=== PATIENT | female | born 2005 | race Caucasian/White ===

== ENCOUNTER 2024-12-22 07:34 | Emergency (ER) | payer OTHER, SELFPAY ==
[2024-12-22 07:38] VITALS: BP 113/64; PULSE 94; RESP 16; TEMP 36.3; O2SAT 98; BMI 26.6
--- NOTE | 2024-12-22 08:21 | ED.LOWEXIN ---
HPI - Extremity Injury (Lower) General Date Seen: 12/22/24 Chief Complaint: Extremity Pain/Injury, Lower Stated Complaint: twisted L ankle Time Seen by Provider: 12/22/24 08:15 Source: patient Mode of arrival: ambulatory Limitations: no limitations History of Present Illness HPI Narrative: Patient is a very nice 19-year-old female from [place] was sliding on the heel yesterday, jammed her left ankle, which she was sliding she noted immediate swelling, did not hear crack, and to bear weight is somewhat painful. She notices the swelling is more the medial side of her ankle, it hurts a little bit to dorsiflex but she is able to come through full range of motion she denies any injury to her left knee, neck back shoulders there is no loss of conscious associated with that she has no pre-existing history of any ankle problems. Is on no chronic medications, she took some ibuprofen last night but none within the last 12 hours. She tells me there is no chance she is . Type of Injury: eversion and hyperflexion Place: school Severity: moderate Relieving factors: NSAID Exacerbating factors: weight bearing, movement and palpation Context: direct blow Associated symptoms: swelling, able to partially bear weight and ambulatory Other symptoms: none Treatments prior to arrival: NSAIDS Related Data Allergies Allergy/AdvReac Type Severity Reaction Status Date / Time No Known Drug Allergies Allergy Verified 12/22/24 07:45 Review of Systems Status of ROS: Reports: 10 or more systems reviewed and unremarkable except as noted in History and below Exam Narrative: Exam Narrative: On examination her left ankle shows some swelling some ecchymosis medially, she is somewhat sore also medially as a postal laterally, she is able to dorsiflex her foot through full range of motion and plantar flex a, anterior drawer test is negative, no tenderness over the midfoot region. DP and posterior tibial pulses are normal sensations normal she does have swelling that comes up her distal tib-fib, and compression test is positive. Const: Vital Signs, click to edit/add: Vital Signs - 24 hr 12/22/24 07:38 Temperature 97.4 F L Pulse Rate [Pulse Oximeter] 94 Respiratory Rate 16 Blood Pressure [Le ft Upper Arm] 113/64 Pulse Oximetry 98 Oxygen Delivery Me thod Room Air Documenting provider has reviewed patient's vital signs: yes Course Course ED Course: I reviewed the x-ray, she has a Brooks B lateral malleolar fracture, neurovascularly stable, she is put in a Bello Jacques, splint in her lower leg. Post splinting she had fantastic cap refill to her toes, movement was normal there is no pain. And normal DP and posterior tibial pulses sensation was also normal. Vital Signs Vital signs: Initial Vital Signs Temperature 97.4 F L 12/22/24 07:38 Temperature Source Temporal Artery Scan 12/22/24 07:38 Pulse Rate 94 12/22/24 07:38 Pulse Rhythm Regular 12/22/24 07:38 Respiratory Rate 16 12/22/24 07:38 Blood Pressure 113/64 12/22/24 07:38 Blood Pressure Mean 80 12/22/24 07:38 Pulse Oximetry 98 12/22/24 07:38 Oxygen Delivery Method Room Air 12/22/24 07:38 Vital Signs Temperature 97.4 F L 12/22/24 07:38 Pulse Rate 94 12/22/24 07:38 Respiratory Rate 16 12/22/24 07:38 Blood Pressure 113/64 12/22/24 07:38 Pulse Oximetry 98 12/22/24 07:38 Oxygen Delivery Method Room Air 12/22/24 07:38 Temperature 97.4 F L 12/22/24 07:38 Pulse Rate 94 12/22/24 07:38 Respiratory Rate 16 12/22/24 07:38 Blood Pressure 113/64 12/22/24 07:38 Pulse Oximetry 98 12/22/24 07:38 Oxygen Delivery Method Room Air 12/22/24 07:38 Medications Administered Medications: Discontinued Medications Generic Name Dose Route Start Last Admin Trade Name Freq PRN Reason Stop Dose Admin Ibuprofen 600 mg 12/22/24 08:18 12/22/24 08:27 Ibuprofen 200 Mg Tablet PO 12/22/24 08:19 600 mg ONCE ONE Administration MDM - Extremity Injury (Lower) MDM Narrative Medical decision making narrative: I discussed with her we will get an x-ray of her left ankle, given her pain with weight-bearing, I worry about a medial malleolar fracture here, or a possible high ankle strain, given her degree of swelling in her distal tib-fib, we will give her some ibuprofen and ice. Medical Records Attestation: I reviewed the patient's medical records. Imaging Data Ankle x-ray: Attestation: I have reviewed the pertinent imaging results. My impression: Ankle x-rays reviewed she has a nondisplaced lateral malleolar distal fibular fracture, there also appears to be widening of the ankle mortise, consistent with the ankle strain or deltoid ligament rupture. This would be graded as a Brooks B fracture of the ankle Radiologist's impression: Radiologist [address] [address] Diagnostic Imaging Report Patient: Zaira Borrero MR#: [id number] : 2005 Acct:[id number] Loc: ED Service Date: 12/22/[address]: Ordering Physician: Rashid Graves M.D. Date of Service: 12/22/24 Procedure(s): XR ankle LT min 3V Accession Number(s): [id number] cc: Provider,Not a Local; Rashid Graves M.D.~ For Patients: As a result of the Cures Act, medical imaging exams and procedure reports are released immediately into your electronic medical record. You may view this report before your referring provider. If you have questions, please contact your health care provider. Indication: Ankle injury Technique: Left ankle 3 views. Comparison: None. Findings: Bones: Nondisplaced oblique fracture of the lateral malleolus (Brooks B). Widening of the medial ankle gutter measuring 4 millimeters. Soft tissues: Significant soft tissue swelling surrounding the ankle. Impression: Nondisplaced oblique fracture of the lateral malleolus (Brooks B). Widening of the medial ankle gutter is consistent with ankle instability. Dictated by Marisol Turk MD @ 12/22/2024 8:41:39 AM (Electronically Signed) Discharge Plan Discharge Clinical Impression: Ankle fracture Patient Disposition: Home, Self-Care Condition: Stable Instructions: Ankle Fracture (ED), Ankle Fracture (DC), Crutch Instructions (ED), Closed Reduction Internal Fixation of Leg Fracture in Adults (DC) Additional Instructions: You will receive a call from the [facility] to schedule a follow up appointment. If you haven't received a call by the end of the day on 12/24, please call [phone]. No weight bearing on the splint. Please do the bag to shower, ibuprofen 600 mg po tid and elevations above the level of the heart. Very important to try to reduce swelling. Follow up with ORTHO mandatory. .. Activity Level: No Weight Bearing Follow Up/Referrals: Provider,Not a Local [Primary Care Provider] - Stand Alone Forms: [facility] Info Instructions
[2024-12-22] MEDS: IBUPROFEN 200 MG TABLET 600 MG PO (08:27)
== END 2024-12-22 09:23 | disposition home or self-care (01) ==
PROVIDERS: Emergency Provider Family Medicine
DX: S82.65XA Nondisplaced fracture of lateral malleolus of left fibula, initial encounter for closed fracture (principal); X50.1XXA Overexertion from prolonged static or awkward postures, initial encounter
CPT/HCPCS: 29515; 73610; 99283; 99284; A9270

== ENCOUNTER 2025-01-02 06:11 | Day surgery (SDC) | payer OTHER, SELFPAY ==
[2025-01-02] VITALS (16 sets, daily range): BP systolic 108–122; BP diastolic 58–85; PULSE 59–84; RESP 14–23; TEMP 36–36.8; O2SAT 95–100; BMI 25.3
--- OUTSIDE RECORDS SUMMARY | 2025-01-02 06:15 | XMS_ITS | Clinical Summary ---
Author Organization [facility] Address [address] [place] [id number] Care Team Providers Care Scale Model Maker Name Role Phone Pcp, No Primary Care Provider Unavailabl e Allergies No known active allergies Encounters Date Type Department Care Team Description 01/01/2025 1:35 PM CASUAL SHOE INSPECTOR Office Visit [facility] [address] [place] [address] Oriana Victoria PA Preoperative Exam (01/02/25, Left foot open reduction internal fixation.) 01/01/2025 Travel 12/29/2024 Travel from Last 3 Months Social History Tobacco Use Types Packs/Day Years Used Date Smoking Tobacco: Never Smokeless Tobacco: Never Tobacco Cessation:Counseling Given: Not Answered Social Connections Answer Date Recorded Do you often feel lonely or isolated from those around you? 0 12/29/2024 Financial Resource Strain Answer Date R ecorded Difficulty of Paying Living Expenses 3 12/29/2024 Difficulty of Paying Living Expenses Not on file 12/29/2024 Food Insecurity Answer Date Recorded Do you worry your food will run out before you are able to buy more? 1 12/29/2024 Transportation Needs Answer Date Record ed Does lack of transportation keep you from medica l appointments? 1 12/29/2024 Does lack of transportation keep you from work, meetings or getting things that you need? 1 12/29/2024 Housing Stability Answer Date Recorded What is your housing situation today? 1 12/29/2024 Utilities Answer Date Recorded Do you have trouble paying f or utilities (for example, heat, electricity, water, phone)? 1 12/29/2024 Comments Unknown Sex and Gender Information Value Date Recorded Sex Assigned at Not on file Legal Sex Female 9:23 AM CASUAL SHOE INSPECTOR Gender Identity Not on file Sexual Orientation Not on file Obstetrics History Last Filed Vital Signs Vital Sign Reading Time Taken Comments Blood Pressure 116/72 01/01/2025 1:48 PM CASUAL SHOE INSPECTOR Pulse 68 01/01/2025 1:48 PM CASUAL SHOE INSPECTOR Temperature - - Respiratory Rate - - Oxygen Saturation 98% 01/01/2025 1:48 PM CASUAL SHOE INSPECTOR Inhaled Oxygen Concentration - - Weight 64.9 kg (143 lb) 01/01/2025 1:48 PM CASUAL SHOE INSPECTOR Height - - Body Mass Index - - Plan of Treatment Health Maintenance Due Date Last Done Comments Well Child Check for age 3-20 01/04/2007 Tdap 02/02/2015 Depression screening for age 12+ 2016 HIV for age 15-65 02/02/2019 HPV series for age 9-26 (1 - 3-dose series) 02/02/2019 Chlamydia for age 16-24 2020 BMI (ht and wt on same day) for age 18+ 02/02/2022 Hepatitis C screening for ag e 18-79 02/02/2022 Tetanus booster 2024 COVID-19 vaccine series ( season) 2024 08/11/2023, 08/18/2022 Influenza for age 9-49 07/08/2024 Meningococcal series for age 11-21 Aged Out No longer eligible b ased on patient's age to complete this topic Pneumococcal series for age 6-49 Aged Out No longer eligible b ased on patient's age to complete this topic Insurance [facility] Care Teams Scale Model Maker Relationship Specialty Start Date End Date Pcp, No . PCP - General 12/28/24
[2025-01-02 06:40] LABS: Ur HCG Qualitative* Negative (Negative)
[2025-01-02] MEDS: SODIUM CHLORIDE 0.9 % (FLUSH) 10 ML SYRINGE IVF (06:56)
--- NOTE | 2025-01-02 06:57 | W.PM.H&PU ---
History & Physical Update History & Physical Update H&P Reviewed and patient assessed: No changes noted
[2025-01-02] MEDS: 0.9 % SODIUM CHLORIDE 500 ML 500 ML 1000 ML IV (06:58)
--- NOTE | 2025-01-02 07:14 | SUR.PREOP ---
TIME?OUT:?0714 PT/RN/MDA?VERIFICATION?OF?SURGICAL?SITE,?PROCEDURE,?AND?CONSENT OBTAINED?PRIOR?TO?INVASIVE?PROCEDURE.
[2025-01-02] MEDS: MIDAZOLAM HCL 1 MG/ML inj IVP (07:16)
[2025-01-02] MEDS: fentaNYL 100 MCG/2 ML inj IVP (07:16)
[2025-01-02] MEDS: 0.9 % SODIUM CHLORIDE 500 ML 500 ML 100 ML IV (07:29)
--- NOTE | 2025-01-02 07:32 | P.NB_ITS ---
Nerve Block Nerve Block Time Seen by Provider: 07:00 Date Seen: 01/02/25 Type of block requested by surgeon for post-operative analgesia: adductor canal Side: left Time out performed: Yes Verification of patient name: Yes Verification of date of : Yes Site marking: site marked Name of person performing procedure: Roel Tijerina Continuous monitoring Was continuous monitoring of O2 sat, B/P, classroom monitor, recorded every 15 minutes?: Yes Procedure Checklist: sterile prep, needles and gloves Ultrasound guided. Images saved: Yes Medications given in 5ml increments after negative aspiration: Ropivicaine %: 0.5 mL: 15 Needle gauge: 20 Patient tolerated procedure well: Yes Additional comments: injected in 5ml increments after negative aspiration Block Charges Block Charge (with Pro Fee): Femoral Nerve Use of Ultrasound Machine for Block: Yes- US Guidance/pain block
--- NOTE | 2025-01-02 07:33 | P.NB_ITS ---
Nerve Block Nerve Block Time Seen by Provider: 07:00 Date Seen: 01/02/25 Type of block requested by surgeon for post-operative analgesia: popliteal Side: left Time out performed: Yes Verification of patient name: Yes Verification of date of : Yes Site marking: site marked Name of person performing procedure: Roel Tijerina Continuous monitoring Was continuous monitoring of O2 sat, B/P, monitor and storage bin tender, recorded every 15 minutes?: Yes Procedure Checklist: sterile prep, needles and gloves Ultrasound guided. Images saved: Yes Medications given in 5ml increments after negative aspiration: Ropivicaine %: 0.5 mL: 15 Needle gauge: 20 Patient tolerated procedure well: Yes Additional comments: Injected in 5ml increments after negative aspiration Block Charges Block Charge (with Pro Fee): Sciatic Nerve Use of Ultrasound Machine for Block: Yes- US Guidance/pain block
[2025-01-02] MEDS: CEFAZOLIN 2 GM in 0.9 % SODIUM CHLORIDE Mini-bag 100 ML IVPB (07:39)
--- NOTE | 2025-01-02 08:47 | PM.ORPRC ---
Procedure Note Date of procedure: 01/02/25 Procedure: PREOPERATIVE DIAGNOSES: 1. Left ankle lateral malleolus fracture (with bimalleolar equivalent) - unstable on stress imaging POSTOPERATIVE DIAGNOSES: 1. Left ankle lateral malleolus fracture (with bimalleolar equivalent) - unstable on stress imaging 2. Left ankle syndesmosis injury NAME OF OPERATION: 1. Left ankle lateral malleolus open reduction with internal fixation. 2. Left ankle syndesmosis stabilization/fixation 3. 58121 - intraoperative fluoroscopy up to 1 hour. SURGEON: Jamaal Fitzpatrick MD CLINICAL TRIAL HEAD: Yakov Rutledge PA-C; Of note, an purchasing administrative assistant was critical for this case to aide in patient positioning, leg manipulation, tissue retraction, closure, patient safety, & splinting. ANESTHESIA: Spinal + regional block. EBL: 10 mL IMPLANTS: Arthrex 2.7 mm interfragmentary screws (x2); 1/3 tubular plate with 3.5 mm locking and nonlocking screws as well as a single 4.0 mm cancellous screw; a single knotless syndesmosis tight rope device TOURNIQUET: 50 minutes at 250 torr. INDICATIONS: The patient is a pleasant 19-year-old female who sustained a left ankle injury in the recent past with difficulty bearing weight. Workup included xrays which revealed an unstable ankle fracture. Given these findings, surgery was recommended to stablize the ankle. FINDINGS: Closed, oblique lateral malleolus fracture. After fixing the fracture with interfragmentary screws and in neutralization plate, cotton test and external rotation test showed greater medial clear space widening confirming syndesmosis injury/tear. PROCEDURE: Following a thorough discussion of risks, benefits, and alternatives, consent was obtained and the left ankle was marked. The patient was brought to the operating room and placed supine on the operating table. Induction of anesthesia was undertaken. Appropriate time out was performed identifying proper patient, site and procedure. 1 gram of iv Ancef was administered within 1 hour of incision preoperatively. The left lower extremity was prepped and draped in the appropriate sterile fashion using ChloraPrep prep. The limb was exsanguinated and the tourniquet inflated. A longitudinal incision was made overlying the distal fibula. Sharp incision through skin and subcutaneous tissue, while protecting any crossing neurologic structures, was performed allowing subperiosteal elevation. The fracture was encountered, and cleared of interposed periosteum and fracture hematoma. The joint was entered, and thoroughly irrigated with normal saline performed. The fracture was reduced and temporarily held with reduction clamps. 2 interfragmentary screws were drilled, measured, and placed. Excellent compression across the fracture achieved. A 1/3 tubular plate was then selected for neutralization purposes with 2 screws proximal and distal. Thereafter, the syndesmosis was stressed and found to be incompetent. Therefore, a single knotless tight rope device was utilized to fix/stabilize the syndesmosis. After confirming appropriate reduction/positioning on C-arm fluoroscopic imaging, the fracture was stabilized with the hardware noted. Fluoroscopy was utilized for confirmation of screw length / positioning. Additionally, the syndesmosis was re-stressed and found to be stable. At this stage, the wound was thoroughly irrigated with normal saline. Closure was performed with #0 Vicryl for the deep periosteum, tourniquet deflated and hemostasis achieved. 3-0 Vicryl for the subcutaneous, and 4-0 statafix for subcuticular layers completed the closure. Dermabond was applied, dressings were applied, and a sugar-tong splint was applied. The patient was awoken from anesthesia and transferred to the PACU in stable condition. PLAN: 1. Elevate operative extremity. 2. Encouraged ice PRN. 3. Tylenol, ibuprofen, and/or Oxycodone for pain as needed. 4. Follow up with PA visit in 10-14 days with removal splint, transition to Cam boot, and initiate weightbear as tolerated. Then follow-up with me at the 6 week jemima. Repeat x-rays right ankle-three views. 5. Toe touch weightbearing operative extremity at this time until 1st postop visit.
--- NOTE | 2025-01-02 09:36 | W.ANESCHARGE ---
Anesthesia Charges Start Date/Time Anesthesia Start Date: 01/02/25 Anesthesia Start Time: 07:29 Stop Date/Time Anesthesia Stop Date: 01/02/25 Anesthesia Stop Time: 09:28 Coding CPT Codes CPT Codes: ANESTH LOWER LEG BONE SURG - 19849 ([id number]) P1 - NORMAL HEALTHY PATIENT, QZ - VENDING MECHANIC [facility] W/O DOLPHIN RESEARCHER BY
--- NOTE | 2025-01-02 09:59 | SUR.PHASEI ---
Patient meets anesthesia discharge criteria from PACU. Awake and comfortable.
--- NOTE | 2025-01-02 10:52 | SUR.PHASEII ---
Patient ambulatory with crutches and stand by assist of 1 to restroom. Patient able to void. Returned to room via crutches and stand by assist.
== END 2025-01-02 11:27 | disposition home or self-care (01) ==
LOC: OR 06:12
PROVIDERS: Anesthesiology; Visit Provider Orthopaedic Surgery Sports Medicine
PROC: (CPT 27792; principal; 2025-01-02 07:30)
DX: S82.62XA Displaced fracture of lateral malleolus of left fibula, initial encounter for closed fracture (principal); S93.432A Sprain of tibiofibular ligament of left ankle, initial encounter; G89.18 Other acute postprocedural pain
CPT/HCPCS: 27792; 27829; 01480; 64445; 64447; 73610; 76942; 81025; C1713; J0690; J1100; J2250; J2405; J2704; J2795; J3010; J7030

== ENCOUNTER 2025-07-09 15:55 | Outpatient (RCR) | payer OTHER, SELFPAY | END 2025-09-09 16:38 | disposition home or self-care (01) | PROVIDERS: Visit Provider Orthopaedic Surgery Sports Medicine | DX: Z48.89 Encounter for other specified surgical aftercare (principal); Z51.89 Encounter for other specified aftercare; Z87.81 Personal history of (healed) traumatic fracture | CPT/HCPCS: 97161 ==